=== PATIENT | male | born 1955 | race African-American/Black ===

== ENCOUNTER 2021-08-31 15:30 | Inpatient (IN) ==
[2021-08-31 16:34] LABS: Basophils % 0.2 % (0.0-0.8); Hemoglobin 7.7 GM/DL (14.0-18.0); Immature Granulocytes % 2.5 %; Immature Granulocytes Absolute 0.57 #; Lymphocytes # 1.4 10*3/uL (1.4-4.0); Lymphocytes % 6.3 % (21.2-54.2); Mean Corpuscular HGB Conc 32.1 GM/DL (32-36); Mean Platelet Volume 12.6 FL (9.6-12.0); Monocytes % 4.1 % (1.7-12.7); Neutrophils % 86.9 % (38.7-73.9); Platelet Count 107 T/CUMM (130-400); Red Blood Count 2.61 MC/CUMM (3.8-5.5); Red Cell Distribution Width 15.7 % (9.3-17.3); White Blood Count 22.7 T/CUMM (4-12)
[2021-08-31 17:02] LABS: Band Neutrophils 1 % (0-10); Lymphocytes 9 % (20-55); Segmented Neutrophils 87 % (50-85); Total Cells Counted 100
[2021-08-31 17:03] LABS: Hypochromia 1+; Platelet Estimate Adequate; Polychromasia 1+
[2021-08-31] MEDS ORDERED: SODIUM CHLORIDE 0.9% 1,000 ML IV PRN (17:10)
[2021-08-31] MEDS ORDERED: GLUCAGON 1 MG VIAL IM PRN (17:10)
[2021-08-31] MEDS ORDERED: DEXTROSE 50% 25 GM/50 ML SYRINGE IV PRN (17:25)
[2021-08-31 18:48] LABS: Basophils % 0.2 % (0.0-0.8); Hematocrit 22.7 VOL% (42.0-52.0); Hemoglobin 7.4 GM/DL (14.0-18.0); Immature Granulocytes % 2.6 %; Immature Granulocytes Absolute 0.68 #; Lymphocytes # 1.3 10*3/uL (1.4-4.0); Lymphocytes % 4.8 % (21.2-54.2); Mean Corpuscular HGB Conc 32.6 GM/DL (32-36); Mean Corpuscular Volume 92.7 FL (87-102); Mean Platelet Volume 12.6 FL (9.6-12.0); Monocytes % 4.6 % (1.7-12.7); NRBC # 0.02 10*3/uL; Neutrophils % 87.8 % (38.7-73.9); Platelet Count 105 T/CUMM (130-400); Red Blood Count 2.45 MC/CUMM (3.8-5.5); White Blood Count 26.4 T/CUMM (4-12)
[2021-08-31] MEDS: SODIUM CHLORIDE 0.9% 1,000 ML IV SCH (18:49)
[2021-08-31] MEDS: MEROPENEM 500 MG in SODIUM CHLORIDE 0.9% 100 ML IV SCH ×2 (18:49→23:56)
[2021-08-31 19:09] LABS: Anisocytosis 1+; Hypochromia 1+; Lymphocytes 7 % (20-55); Platelet Estimate Adequate; Polychromasia Few; Segmented Neutrophils 89 % (50-85); Total Cells Counted 100
[2021-08-31 19:09] LABS: Albumin 2.2 G/DL (3.4-5.0); Bilirubin,Total 1.2 MG/DL (0.20-1.00); Calcium 7.2 MG/DL (8.5-10.1); Osmolality,Calculated 300.4 MOS/KG (273-304); Potassium 3.9 MMOL/L (3.5-5.1); Total Protein 4.2 G/DL (6.4-8.2)
[2021-08-31] MEDS ORDERED: SODIUM CHLORIDE 0.9% 2,000 ML IV ONE (19:40)
[2021-08-31] MEDS ORDERED: VANCOMYCIN INJ 1,500 MG in SODIUM CHLORIDE 0.9% 500 ML IV SCH (21:00)
[2021-08-31] MEDS: PANTOPRAZOLE INJ 200 MG in SODIUM CHLORIDE 0.9% 250 ML IV SCH (22:24)
[2021-08-31 23:47] LABS: Bilirubin,Urine Negative (Negative); Blood, Urine Negative (Negative); Glucose,Urine (UA) Negative (Negative); Ketones,Urine Negative (Negative); Nitrite,Urine Negative (Negative); Protein,Urine Negative; RBC,Urine 1 /HPF (0-4); Urine Appearance CLEAR (Clear); Urine Color Yellow (Yellow); Urine Specific Gravity > 1.060 (1.001-1.035); Urine Urobilinogen < 2.0 EU/DL (<2.0)
[2021-09-01 01:39] LABS: Basophils % 0.1 % (0.0-0.8); Hematocrit 19.7 VOL% (42.0-52.0); Immature Granulocytes % 2.9 %; Immature Granulocytes Absolute 0.81 #; Lymphocytes # 1.5 10*3/uL (1.4-4.0); Lymphocytes % 5.4 % (21.2-54.2); Mean Corpuscular HGB Conc 32.5 GM/DL (32-36); Mean Corpuscular Volume 91.2 FL (87-102); Mean Platelet Volume 12.2 FL (9.6-12.0); Monocytes % 4.7 % (1.7-12.7); NRBC # 0.04 10*3/uL; Neutrophils % 86.9 % (38.7-73.9); Red Blood Count 2.16 MC/CUMM (3.8-5.5); Red Cell Distribution Width 15.9 % (9.3-17.3); White Blood Count 27.7 T/CUMM (4-12)
[2021-09-01 01:40] LABS: Platelet Count 98 T/CUMM (130-400)
[2021-09-01 01:43] LABS: Hemoglobin 6.4 GM/DL (14.0-18.0)
[2021-09-01 02:09] LABS: Lymphocytes 5 % (20-55); Segmented Neutrophils 93 % (50-85); Total Cells Counted 100
[2021-09-01 02:15] LABS: Microcytosis 1+; Platelet Estimate Adequate; Polychromasia Few
[2021-09-01 02:16] LABS: Hypochromia 2+
[2021-09-01] MEDS: MEROPENEM 500 MG in SODIUM CHLORIDE 0.9% 100 ML IV SCH ×3 (07:27→18:32)
[2021-09-01] MEDS: SODIUM CHLORIDE 0.9% 1,000 ML IV SCH ×2 (07:28→23:13)
[2021-09-01 08:35] LABS: Basophils % 0.1 % (0.0-0.8); Hematocrit 21.3 VOL% (42.0-52.0); Hemoglobin 6.9 GM/DL (14.0-18.0); Immature Granulocytes % 2.7 %; Immature Granulocytes Absolute 0.79 #; Lymphocytes # 1.6 10*3/uL (1.4-4.0); Lymphocytes % 5.5 % (21.2-54.2); Mean Corpuscular HGB Conc 32.4 GM/DL (32-36); Mean Corpuscular Volume 93.8 FL (87-102); Mean Platelet Volume 12.2 FL (9.6-12.0); Monocytes % 5.9 % (1.7-12.7); NRBC # 0.09 10*3/uL; Neutrophils % 85.8 % (38.7-73.9); Platelet Count 89 T/CUMM (130-400); Red Blood Count 2.27 MC/CUMM (3.8-5.5); Red Cell Distribution Width 15.2 % (9.3-17.3); White Blood Count 29.2 T/CUMM (4-12)
[2021-09-01 08:47] LABS: INR 1.2; PT Patient Result 13.3 SECS (10.5-12.0); Partial Thromboplastin Time 26.2 SECS (23.8-32.1)
[2021-09-01 08:50] LABS: Calcium 6.8 MG/DL (8.5-10.1); Osmolality,Calculated 298.6 MOS/KG (273-304); Potassium 3.7 MMOL/L (3.5-5.1)
[2021-09-01] MEDS ORDERED: SODIUM CHLORIDE 0.9% 1,000 ML IV PRN ×2 (09:02→18:27)
[2021-09-01 11:49] LABS: Lymphocytes 6 % (20-55); Segmented Neutrophils 94 % (50-85); Total Cells Counted 100
[2021-09-01 11:50] LABS: Ovalocytes Few; Platelet Estimate Adequate; Polychromasia Slight
[2021-09-01] MEDS: ACETAMINOPHEN 325 MG TABLET PO PRN (13:51)
[2021-09-01] MEDS: PANTOPRAZOLE INJ 200 MG in SODIUM CHLORIDE 0.9% 250 ML IV SCH (18:32)
[2021-09-01 19:31] LABS: Hematocrit 23.4 VOL% (42.0-52.0); Hemoglobin 7.5 GM/DL (14.0-18.0)
[2021-09-01] MEDS: VANCOMYCIN INJ 1,500 MG in SODIUM CHLORIDE 0.9% 500 ML IV SCH (23:13)
[2021-09-02] MEDS: SODIUM CHLORIDE 0.9% 1,000 ML IV SCH ×3 (02:20→20:27)
[2021-09-02] MEDS: MEROPENEM 500 MG in SODIUM CHLORIDE 0.9% 100 ML IV SCH ×3 (02:23→17:35)
[2021-09-02 05:06] LABS: Basophils # 0.1 10*3/uL (0.0-0.2); Basophils % 0.3 % (0.0-0.8); Eosinophils # 0.2 10*3/uL (0.0-0.87); Eosinophils % 0.6 % (0.00-10.9); Hematocrit 24.7 VOL% (42.0-52.0); Immature Granulocytes % 3.6 %; Immature Granulocytes Absolute 0.98 #; Lymphocytes # 2.5 10*3/uL (1.4-4.0); Lymphocytes % 9.2 % (21.2-54.2); Mean Corpuscular HGB Conc 32.4 GM/DL (32-36); Mean Corpuscular Volume 92.9 FL (87-102); Mean Platelet Volume 12.8 FL (9.6-12.0); Monocytes % 6.9 % (1.7-12.7); NRBC # 0.15 10*3/uL; Neutrophils % 79.4 % (38.7-73.9); Platelet Count 74 T/CUMM (130-400); Red Blood Count 2.66 MC/CUMM (3.8-5.5); Red Cell Distribution Width 15.3 % (9.3-17.3); White Blood Count 27.1 T/CUMM (4-12)
[2021-09-02 05:14] LABS: INR 1.1; PT Patient Result 12.4 SECS (10.5-12.0)
[2021-09-02 05:25] LABS: Calcium 6.7 MG/DL (8.5-10.1); Osmolality,Calculated 289.1 MOS/KG (273-304); Potassium 3.3 MMOL/L (3.5-5.1)
[2021-09-02 05:29] LABS: Hypochromia 1+; Lymphocytes 5 % (20-55); Microcytosis 1+; Nucleated Red Blood Cells 2 (0-5); Platelet Estimate Decreased; Segmented Neutrophils 90 % (50-85); Total Cells Counted 100
[2021-09-02 06:35] LABS: Hematocrit 24.7 VOL% (42.0-52.0); Hemoglobin 8.2 GM/DL (14.0-18.0)
[2021-09-02] MEDS ORDERED: POTASSIUM CHLORIDE 20 MEQ TABLET PO ONE (07:54)
[2021-09-02] MEDS ORDERED: HYDROCORTISONE 1% CREAM 28 GM TUBE TOP PRN (11:23)
[2021-09-02 12:26] LABS: Hemoglobin 7.8 GM/DL (14.0-18.0)
[2021-09-02] MEDS: PANTOPRAZOLE INJ 200 MG in SODIUM CHLORIDE 0.9% 250 ML IV SCH (17:24)
[2021-09-02 19:12] LABS: Hematocrit 23.6 VOL% (42.0-52.0); Hemoglobin 7.5 GM/DL (14.0-18.0)
[2021-09-02] MEDS ORDERED: SODIUM CHLORIDE 0.9% 1,000 ML IV PRN (20:16)
[2021-09-02] MEDS: VANCOMYCIN INJ 1,500 MG in SODIUM CHLORIDE 0.9% 500 ML IV SCH (20:28)
[2021-09-03 00:55] LABS: Hematocrit 25.8 VOL% (42.0-52.0); Hemoglobin 8.3 GM/DL (14.0-18.0)
[2021-09-03] MEDS: MEROPENEM 500 MG in SODIUM CHLORIDE 0.9% 100 ML IV SCH ×3 (01:48→17:47)
[2021-09-03] MEDS: SODIUM CHLORIDE 0.9% 1,000 ML IV SCH ×2 (06:45→15:32)
[2021-09-03 06:51] LABS: Hematocrit 24.5 VOL% (42.0-52.0); Hemoglobin 7.9 GM/DL (14.0-18.0)
[2021-09-03 06:55] LABS: Basophils # 0.1 10*3/uL (0.0-0.2); Basophils % 0.3 % (0.0-0.8); Eosinophils # 0.2 10*3/uL (0.0-0.87); Hematocrit 23.9 VOL% (42.0-52.0); Hemoglobin 7.7 GM/DL (14.0-18.0); Immature Granulocytes % 3.1 %; Lymphocytes # 1.6 10*3/uL (1.4-4.0); Lymphocytes % 8.3 % (21.2-54.2); Mean Corpuscular HGB Conc 32.2 GM/DL (32-36); Mean Corpuscular Volume 92.3 FL (87-102); Mean Platelet Volume 12.6 FL (9.6-12.0); Monocytes % 5.9 % (1.7-12.7); NRBC # 0.17 10*3/uL; Neutrophils % 81.4 % (38.7-73.9); Platelet Count 74 T/CUMM (130-400); Red Blood Count 2.59 MC/CUMM (3.8-5.5); Red Cell Distribution Width 15.7 % (9.3-17.3); White Blood Count 19.1 T/CUMM (4-12)
[2021-09-03 07:13] LABS: PT Patient Result 10.9 SECS (10.5-12.0)
[2021-09-03 07:53] LABS: Eosinophils 2 % (0-10); Hypochromia Slight; Lymphocytes 6 % (20-55); Microcytosis 1+; Polychromasia Slight; Segmented Neutrophils 91 % (50-85); Total Cells Counted 100
[2021-09-03 07:54] LABS: Platelet Estimate Decreased
[2021-09-03 10:52] LABS: Osmolality,Calculated 289.7 MOS/KG (273-304); Potassium 3.3 MMOL/L (3.5-5.1)
[2021-09-03] MEDS: PANTOPRAZOLE INJ 200 MG in SODIUM CHLORIDE 0.9% 250 ML IV SCH (17:12)
[2021-09-03 19:47] LABS: Hematocrit 25.3 VOL% (42.0-52.0); Hemoglobin 8.1 GM/DL (14.0-18.0)
[2021-09-03] MEDS: VANCOMYCIN INJ 1,500 MG in SODIUM CHLORIDE 0.9% 500 ML IV SCH (22:11)
[2021-09-04] MEDS: MEROPENEM 500 MG in SODIUM CHLORIDE 0.9% 100 ML IV SCH ×2 (02:56→10:02)
[2021-09-04] MEDS: SODIUM CHLORIDE 0.9% 1,000 ML IV SCH ×4 (04:21→14:28)
[2021-09-04 06:09] LABS: Hematocrit 24.1 VOL% (42.0-52.0); Hemoglobin 7.6 GM/DL (14.0-18.0)
[2021-09-04 06:15] LABS: Basophils # 0.1 10*3/uL (0.0-0.2); Basophils % 0.3 % (0.0-0.8); Eosinophils # 0.2 10*3/uL (0.0-0.87); Eosinophils % 1.2 % (0.00-10.9); Hemoglobin 7.9 GM/DL (14.0-18.0); Immature Granulocytes Absolute 0.59 #; Lymphocytes # 1.4 10*3/uL (1.4-4.0); Lymphocytes % 7.2 % (21.2-54.2); Mean Corpuscular HGB Conc 31.6 GM/DL (32-36); Mean Corpuscular Volume 91.9 FL (87-102); Mean Platelet Volume 12.7 FL (9.6-12.0); NRBC # 0.16 10*3/uL; Neutrophils % 82.3 % (38.7-73.9); Red Blood Count 2.72 MC/CUMM (3.8-5.5); Red Cell Distribution Width 16.1 % (9.3-17.3); White Blood Count 19.9 T/CUMM (4-12)
[2021-09-04 06:30] LABS: Platelet Count 89 T/CUMM (130-400)
[2021-09-04 06:44] LABS: Eosinophils 3 % (0-10); Hypochromia 1+; Lymphocytes 4 % (20-55); Microcytosis 1+; Platelet Estimate Decreased; Segmented Neutrophils 87 % (50-85); Total Cells Counted 100
[2021-09-04 06:51] LABS: Calcium 7.5 MG/DL (8.5-10.1); Osmolality,Calculated 284.8 MOS/KG (273-304)
[2021-09-04] MEDS ORDERED: POTASSIUM CHLORIDE 20 MEQ PACK PO ONE (08:00)
[2021-09-04] MEDS: POTASSIUM CHLORIDE RIDER 10 MEQ/100 ML PREMIX IV PRN ×2 (10:41→13:02)
[2021-09-04] MEDS ORDERED: BISACODYL 5 MG TABLET PO ONE (12:00)
[2021-09-04] MEDS ORDERED: hydrALAZINE 20 MG/1 ML VIAL IV PRN (12:45)
[2021-09-04] MEDS ORDERED: hydrALAZINE 20 MG/1 ML VIAL IV ONE (12:45)
[2021-09-04] MEDS ORDERED: PIPERACILLIN/TAZOBACTAM 4,500 MG in SODIUM CHLORIDE 0.9% 100 ML IV SCH (13:00)
[2021-09-04] MEDS: PHENYLEPHRINE 0.25% SUPP RECTAL SCH ×2 (13:49→20:49)
[2021-09-04] MEDS: ONDANSETRON 4 MG/2 ML VIAL IV PRN ×2 (13:49→16:53)
[2021-09-04] MEDS: PIPERACILLIN/TAZOBACTAM 3,375 MG in SODIUM CHLORIDE 0.9% 100 ML IV SCH (17:57)
[2021-09-04] MEDS ORDERED: POLYETHYLENE GLYCOL POWDER 255 GM BOTTLE PO ONE (18:00)
[2021-09-04 18:56] LABS: Hematocrit 25.7 VOL% (42.0-52.0); Hemoglobin 8.2 GM/DL (14.0-18.0)
[2021-09-04] MEDS ORDERED: MAGNESIUM CITRATE 300 ML BOTTLE PO ONE (21:00)
[2021-09-05] MEDS: ACETAMINOPHEN 325 MG TABLET PO PRN (01:29)
[2021-09-05] MEDS: SODIUM CHLORIDE 0.9% 1,000 ML IV SCH ×3 (01:49→10:00)
[2021-09-05] MEDS: PIPERACILLIN/TAZOBACTAM 3,375 MG in SODIUM CHLORIDE 0.9% 100 ML IV SCH ×3 (01:50→17:48)
[2021-09-05 05:57] LABS: Hematocrit 24.7 VOL% (42.0-52.0); Hemoglobin 7.8 GM/DL (14.0-18.0)
[2021-09-05 06:03] LABS: PT Patient Result 10.9 SECS (10.5-12.0)
[2021-09-05 06:12] LABS: Bilirubin,Total 1.4 MG/DL (0.20-1.00); Calcium 7.6 MG/DL (8.5-10.1); Total Protein 4.6 G/DL (6.4-8.2)
[2021-09-05] MEDS: POTASSIUM CHLORIDE RIDER 10 MEQ/100 ML PREMIX IV PRN (06:47)
[2021-09-05] MEDS ORDERED: LACTATED RINGERS 1,000 ML IV SCH (08:00)
[2021-09-05] MEDS: POTASSIUM CHLORIDE RIDER 10 MEQ/100 ML PREMIX IV SCH ×3 (09:37→15:36)
[2021-09-05] MEDS: PHENYLEPHRINE 0.25% SUPP RECTAL SCH ×3 (10:42→21:25)
[2021-09-05 11:01] LABS: Bacteria,Urine Occasional /HPF (Few); Bilirubin,Urine Negative (Negative); Blood, Urine Negative (Negative); Glucose,Urine (UA) Negative (Negative); Ketones,Urine Negative (Negative); Nitrite,Urine Negative (Negative); Protein,Urine Negative; RBC,Urine 1 /HPF (0-4); Urine Appearance CLEAR (Clear); Urine Color Yellow (Yellow); Urine Urobilinogen < 2.0 EU/DL (<2.0)
[2021-09-05] MEDS ORDERED: propofoL 200 MG/20 ML VIAL IV ONE ×2 (11:21→11:34)
[2021-09-05] MEDS ORDERED: LIDOCAINE 2% 5 ML VIAL ONE (11:21)
[2021-09-05 13:22] LABS: Basophils # 0.1 10*3/uL (0.0-0.2); Basophils % 0.3 % (0.0-0.8); Eosinophils # 0.3 10*3/uL (0.0-0.87); Eosinophils % 1.4 % (0.00-10.9); Hematocrit 25.4 VOL% (42.0-52.0); Hemoglobin 8.2 GM/DL (14.0-18.0); Immature Granulocytes % 1.9 %; Immature Granulocytes Absolute 0.35 #; Lymphocytes % 5.5 % (21.2-54.2); Mean Corpuscular HGB Conc 32.3 GM/DL (32-36); Mean Platelet Volume 12.7 FL (9.6-12.0); Monocytes % 6.2 % (1.7-12.7); NRBC # 0.07 10*3/uL; Neutrophils % 84.7 % (38.7-73.9); Platelet Count 108 T/CUMM (130-400); Red Blood Count 2.79 MC/CUMM (3.8-5.5); Red Cell Distribution Width 15.6 % (9.3-17.3); White Blood Count 18.5 T/CUMM (4-12)
[2021-09-05 19:08] LABS: Hematocrit 25.8 VOL% (42.0-52.0); Hemoglobin 8.2 GM/DL (14.0-18.0)
[2021-09-06] MEDS: SODIUM CHLORIDE 0.9% 1,000 ML IV SCH ×3 (00:15→13:54)
[2021-09-06] MEDS: ONDANSETRON 4 MG/2 ML VIAL IV PRN (01:32)
[2021-09-06] MEDS: PIPERACILLIN/TAZOBACTAM 3,375 MG in SODIUM CHLORIDE 0.9% 100 ML IV SCH (02:33)
[2021-09-06] MEDS ORDERED: ALUMINUM/MAGNES/SIMETH MAX STR 30 ML UDCUP PO PRN (02:47)
[2021-09-06 04:50] LABS: Basophils # 0.1 10*3/uL (0.0-0.2); Basophils % 0.4 % (0.0-0.8); Eosinophils # 0.3 10*3/uL (0.0-0.87); Eosinophils % 1.8 % (0.00-10.9); Hematocrit 27.2 VOL% (42.0-52.0); Hemoglobin 8.3 GM/DL (14.0-18.0); Immature Granulocytes % 1.7 %; Immature Granulocytes Absolute 0.31 #; Lymphocytes # 1.1 10*3/uL (1.4-4.0); Lymphocytes % 6.3 % (21.2-54.2); Mean Corpuscular HGB Conc 30.5 GM/DL (32-36); Mean Corpuscular Volume 95.4 FL (87-102); Mean Platelet Volume 13.1 FL (9.6-12.0); Monocytes % 5.6 % (1.7-12.7); NRBC # 0.07 10*3/uL; Neutrophils % 84.2 % (38.7-73.9); Platelet Count 57 T/CUMM (130-400); Red Blood Count 2.85 MC/CUMM (3.8-5.5); Red Cell Distribution Width 15.9 % (9.3-17.3)
[2021-09-06 05:16] LABS: Platelet Estimate Decreased
[2021-09-06 05:17] LABS: Hypochromia Slight
[2021-09-06 05:26] LABS: Albumin 1.8 G/DL (3.4-5.0); Bilirubin,Total 1.3 MG/DL (0.20-1.00); Calcium 7.5 MG/DL (8.5-10.1); Osmolality,Calculated 286.8 MOS/KG (273-304); Potassium 3.2 MMOL/L (3.5-5.1); Total Protein 4.4 G/DL (6.4-8.2)
[2021-09-06] MEDS ORDERED: LEVOTHYROXINE 125 MCG TABLET PO SCH (06:30)
[2021-09-06] MEDS ORDERED: FUROSEMIDE 40 MG TABLET PO PRN (08:19)
[2021-09-06] MEDS: PHENYLEPHRINE 0.25% SUPP RECTAL SCH (08:59)
[2021-09-06] MEDS ORDERED: carvediloL 6.25 MG TABLET PO SCH ×2 (09:00)
[2021-09-06] MEDS ORDERED: CHOLECALCIFEROL 1,000 UNIT TABLET PO SCH (09:00)
[2021-09-06] MEDS ORDERED: POTASSIUM CHLORIDE 20 MEQ PACK PO ONE (09:00)
[2021-09-06] MEDS ORDERED: LEVOFLOXACIN INJ 750 MG/150 ML PREMIX IV SCH (09:00)
[2021-09-06 12:23] VITALS: BP 132/57
[2021-09-06] MEDS ORDERED: FUROSEMIDE 40 MG TABLET PO SCH (13:00)
[2021-09-06 13:56] LABS: Hepatitis B Core IgM Quant 0.08 Index; Hepatitis B Surface Ag Quant < 0.10 Index; Hepatitis B Surface Ag Result Non-Reactive (NonReactive); Hepatitis C Virus Ab Quant 3.66 Index
[2021-09-06] MEDS ORDERED: allopurinoL 100 MG TABLET PO SCH (16:30)
[2021-09-06] MEDS ORDERED: SIMVASTATIN 80 MG TABLET PO SCH (21:00)
== END 2021-09-06 17:07 | disposition home or self-care (01) | DRG 377 ==
LOC: N.ED 15:30 → SUATTDRO 17:10 → N.3E 17:10
PROVIDERS: ADMIT Internal Medicine; ATTEND Internal Medicine